=== PATIENT | female | born 1970 | race Caucasian/White ===

== ENCOUNTER → 2017-11-03 08:33 | Outpatient (CLI) | payer OTHER, SELFPAY ==
--- NOTE | 2017-11-03 08:40 | XR_ITS ---
XR ribs RT min 3V w CXR1V HISTORY: Right rib pain following injury ITS.REASON: RT RIB PAIN ORDERING PHYSICIAN: Yu Null PATIENT AGE: 46 years COMPARISON: None FINDINGS: A frontal view of the chest shows no acute finding. Multiple views of the right ribs were obtained. There are old fractures involving the right second through fifth ribs posteriorly. In addition there is a nondisplaced acute fracture involving the right fifth rib laterally. No evidence of pneumothorax. IMPRESSION: 1. Nondisplaced acute right fifth rib fracture. 2. Multiple old right rib fractures
== END ==
PROVIDERS: PCP Nurse Practitioner; Visit Provider Nurse Practitioner
DX: R07.81 Pleurodynia (principal)
CPT/HCPCS: 71101

== ENCOUNTER → 2017-11-07 15:20 | Outpatient (CLI) | payer OTHER, SELFPAY ==
--- NOTE | 2017-11-07 15:28 | XR_ITS ---
XR ribs RT min 3V w CXR1V Ordering Physician: Armando Cormier MD Patient Age: 46 years: Female HISTORY: ITS.REASON: FX OF 1 RT RIB Right fifth rib fracture has had increased pain since . Patient states she is acute pain of the right breast with layering down. Also history of right clavicle fracture 2016 TECHNIQUE: Both oblique views right ribs along with AP chest above and below diaphragm. COMPARISON :October 17, 2017 CXR. FINDINGS Acute fractures of the right lateral fourth & fifth ribs now evident. On today's oblique view there is now evident of fourth rib fracture, located just superior to the previously reported right fifth rib fracture. Scant minor cortical step-off at this fourth rib fracture. Rib The fifth rib fracture line slightly more evident today,, with very subtle additional distraction. There is also slight additional cortical step-off evident. This suggests there has been some slight shift at t these with fracture Old fractures of the right , second , third fourth rib and posterior fifth ribs again noted. . There is no pneumothorax nor pleural effusion or consolidation. There may be some minor atelectasis towards the right base. Equivocal left lung clear heart and mediastinal structures unremarkable. Postsurgical changes from old right clavicular fracture. IMPRESSION 1. Acute right lateral fifth & fourth rib fractures now evident: Subtle additional cortical offset & subtle additional distraction now seen at previously reported right fifth rib fracture. In addition an acute fourth rib fracture has become evident,. With with now very subtle minor cortical step-off. These subtle changes reflect minor motion at both of these fractures since the previous November 03 CXR. But 2. No pneumothorax. No pleural effusion Right lung remains clear with only question some minor atelectasis right lung base 3. Old fractures right, third fourth fifth rib
== END ==
PROVIDERS: PCP Family Medicine; Visit Provider Family Medicine
DX: S22.31XA Fracture of one rib, right side, initial encounter for closed fracture (principal)
CPT/HCPCS: 71101

== ENCOUNTER 2024-08-30 14:57 | Outpatient (CLI) | payer OTHER, SELFPAY ==
--- NOTE | 2024-08-30 15:02 | CA_ITS ---
APPROVED REPORT EXAM: Comprehensive 2D, Doppler, and color-flow Echocardiogram Olive Picker: Gertrude Medel CRT Ht: 5 ft 10 in Wt: 148lbs BSA: 1.84 BP: 131/37 mmHg Indications: Chest Pain, Shortness of Breath, Fatigue 2D Dimensions Left Atrium 2.81 cm LA Volume 61.90 mL LVOT 1.76 cm (M/F) 1.5-2.5 LA Volume Index 33.60 mL/m2 (M/F) 16-34 EF AP4 61.00 % GL Strain -21.1 % M-Mode Dimensions RVDd 2.25 cm (0.9-2.6) LVDd 4.93 cm (3.5-5.7) Ao Diam 3.04 cm (2.0-3.7) LVDs 3.50 cm (3.5-5.7) IVSd 0.75 cm (0.6-1.1) PWd 0.91 cm (0.6-1.1) EF (Teich) 55.50% FS 29.00% EDV (Teich) 114.40 mL TAPSE 1.75 (<1.7) ESV (Teich) 50.90 mL LV Diastology E Decel Time 186 (160-240 msec) E/A Ratio 3.38 MED E' 13.5 (>= 7 cm/sec) MED A' 11.80 cm/s E'/MED E' Ratio 6.39 (<= 14) LAT E' 14.8 (>= 10 cm/sec) LAT A' 9.40 cm/s E/LAT E' Ratio 5.83 (<= 14) Aortic Valve AoV Peak Tee. 166.0 (50-130 cm/s) AI PHT 904.00 ms AO Peak GR. 11.00 mmHg Mitral Valve MV E Max Tee. 86.0 (40-130 cm/s) MV A Velocity 25.0 (40-130 cm/s) E/A Ratio 3.38 MV Decel. Time 186 (160-240 ms) Tricuspid Valve TR P. Velocity 249.00 cm/s RAP Estimate 10.00 mmHg RVSP 34.80 mmHg Left Ventricle The left ventricle is normal size. The left ventricular systolic function is normal. The left ventricular ejection fraction is within the normal range. There is increased LV wall thickness. There is normal LV segmental wall motion. The left ventricular diastolic function is normal. LVEF is 55%. Right Ventricle The right ventricle is mildly dilated. The right ventricular systolic function is normal. Atria The left atrium is mildly dilated. The right atrium is mildly dilated. There is no Doppler evidence of interatrial shunt. Aortic Valve The aortic valve opens well. There is no aortic valvular stenosis. No aortic regurgitation is present. Mitral Valve The mitral valve is normal in structure. No evidence of mitral valve stenosis. Mitral regurgitation. Tricuspid Valve The tricuspid valve leaflets are thin and pliable. Mild tricuspid regurgitation. RVSP is 20-25 mmHg. Pulmonic Valve The pulmonary valve is normal in structure. Trace pulmonic regurgitation. Great Vessels The aortic root is normal in size. IVC is normal in size and collapses >50% with inspiration. Pericardium There is no pericardial effusion. Other Information Study Quality: Fair Conclusion Normal LV systolic function. Mild RV dilation with normal RV function. Mild biatrial dilation. Mild AI. Mild MR. Mild TR. RVSP is 20-25 mmHg. Electronically signed by : Olive Lehman MD 09/10/2024 12:27:44
== END 2024-08-30 23:59 | disposition home or self-care (01) ==
LOC: RT 14:58
PROVIDERS: PCP Family Medicine; Visit Provider Nurse Practitioner
DX: I05.1 Rheumatic mitral insufficiency (principal); R07.89 Other chest pain; R06.09 Other forms of dyspnea
CPT/HCPCS: 93306

== ENCOUNTER 2024-09-10 07:09 | Outpatient (CLI) | payer OTHER, SELFPAY ==
--- NOTE | 2024-09-10 | CA_ITS ---
APPROVED REPORT Exam: Exercise Treadmill Technologist: Renata Roman Ht: 5 ft 10 in Wt: 148 lbs BSA: 1.84 m2 HR: 48 bpm BP: 145/70 mmHg Stress Test Details Test: Exercise stress testing was performed using a Estiven protocol. HR Resting HR: 48 bpm Max Heart Rate (APMHR): 165.093648 bpm Max HR Achieved: 142 bpm Target HR (85% APMHR): 140.120617 bpm % of APMHR: 86.06 Recovery HR: 79 bpm BP Resting BP: 145.0/70.0 mmHg Max BP: 180.0/86.0 mmHg Recovery BP: 138.0/68.0 mmHg ECG Stress ECG Conclusion Symptoms: Mild shortness of air Arrhythmias/Ectopy: None ST-T Changes: None Electronically signed by : Olive Lehman MD 09/11/2024 11:43:16
--- NOTE | 2024-09-10 07:18 | NM_ITS ---
APPROVED REPORT Exam: Nuclear Stress Test Indication: Chest pain, SOB, Fatigue, Family history Patient Location: Outpatient Stress Tech: Renata Roman NM Tech:Rama Nowak, ARRT, RT (R)(N) Ht: 5 ft 2 in Wt: 155 lbs Bra Size: 36C HR: 48 bpm BP: 145/70 mmHg BSA: 1.72 m2 TID: 1.02 BMI: 28.3 History: Chest pain, SOB, Fatigue, Family history Procedure: Patient exercised on Estiven protocol 6:00 minutes and sec, resting heart rate 48 bpm, resting blood pressure 145/70 mmHg, with exercise maximum heart rate achived was 142 bpm which is 90 % of the maximum predicted heart rate and blood pressure was 156/82 mmHg. Test was stopped due to SOB. Patient denied any complaint of chest pain. Patient has exercise capacity, achieved 7.1 METs of workload on treadmill, the blood pressure response to exercise was . Cardiac Stress and Resting SPECT Images: Cardiac Stress and Resting SPECT images were obtained using technetium 99m Myoview 29.2 mCi stress and 10.23 mCi at rest. Raw images demonstrate significant GI radiotracer uptake in close proximity to the inferior border of the LV wall. This may affect the diagnostic interpretation of the study findings. Resting and stress imaging in supine and prone positions demonstrate no evidence of fixed or reversible perfusion defects. Gated imaging demonstrates normal global and regional LV systolic function. LVEF is calculated at 53%. Conclusion: No evidence of fixed or reversible perfusion defects. Gated imaging demonstrates normal global and regional LV systolic function. LVEF is calculated at 53%. Electronically signed by : Olive Lehman MD 09/11/2024 11:45:03
[2024-09-10] MEDS: SODIUM CHLORIDE 0.9% 10ML SYR (RAD ONLY) 10 ML IV ×2 (09:41→09:42)
[2024-09-10] MEDS: ISOTOPE MYOVIEW (PER STUDY) 1 DOSE IV (09:42)
== END 2024-09-10 23:59 | disposition home or self-care (01) ==
PROVIDERS: PCP Nurse Practitioner; Visit Provider Nurse Practitioner
DX: R07.89 Other chest pain (principal); R06.09 Other forms of dyspnea
CPT/HCPCS: 78452; 93017; 93018; A9502